=== PATIENT | male | born 1970 | race Hispanic/Latino ===

== ENCOUNTER 2016-12-03 15:44 | Emergency (ER) | payer OTHER ==
[2016-12-03] MEDS ORDERED: HYDROcodone/Acetaminophen 10/325 mg Tablet ONE (16:05)
[2016-12-03] MEDS ORDERED: Adacel (T-DAP) 0.5 ML VIAL ONE (16:15)
[2016-12-03] MEDS ORDERED: Lidocaine 1% 20 ML MDV ONE (16:21)
--- NOTE | 2016-12-03 16:26 | RAD ---
LEFT FOREARM TWO VIEWS: History: Injury, left forearm pain. FINDINGS: The left radius and ulnar are intact. No radiopaque foreign bodies seen. A soft tissue laceration is seen in the dorsal and ulnar aspect of the mid forearm. POS: [facility]
[2016-12-03] MEDS ORDERED: Sodium Chloride 0.9% 1,000 ML ONE (16:28)
[2016-12-03] MEDS ORDERED: Bacitracin Zinc 1 Packet ONE (17:09)
== END 2016-12-03 17:32 | disposition home or self-care (01) ==
LOC: NAV ERS 15:44
DX: S51.812A Laceration without foreign body of left forearm, initial encounter (principal); W45.8XXA Other foreign body or object entering through skin, initial encounter
CPT/HCPCS: 12032; 90471; 90715; 96360; 99001; J2001; J7050